=== PATIENT | female | born 1955 | race Two or more races ===

== ENCOUNTER 2020-02-17 16:49 | Outpatient (CLI) | payer OTHER | END 2020-02-17 16:51 | disposition home or self-care (01) | LOC: PPH VACUNA 16:49 | PROVIDERS: ATTEND Emergency Medicine Pediatric Emergency Medicine | DX: Z23 Encounter for immunization (principal) ==

== ENCOUNTER → 2020-03-09 07:00 | Outpatient (CLI) | payer OTHER | END | disposition home or self-care (01) | LOC: PPH VACUNA 07:00 | PROVIDERS: ATTEND Emergency Medicine Pediatric Emergency Medicine | DX: Z23 Encounter for immunization (principal) ==